=== PATIENT | male | born 1980 | race Caucasian/White ===

== ENCOUNTER 2017-02-14 08:05 | Emergency (ER) | payer BC ==
[2017-02-14 08:13] VITALS: BP 136/86
[2017-02-14] MEDS ORDERED: Lidocaine 1% MDV 20 ML INJ ONE (08:55)
[2017-02-14] MEDS ORDERED: Tetan/Diph/Pertus SYR(Tdap)* 0.5 ML SYR(BOOSTRIX) use SYR IM ONE (08:55)
[2017-02-14] MEDS ORDERED: Lidocaine 1% MPF* 2 ML VIAL INJ ONE (09:00)
--- NOTE | 2017-02-27 13:13 | UC ---
Henry Pizaror [place], scribed for Nichelle Lira MD on 02/14/17 at 0849 . Skin Complaint HPI - HPI Summary HPI Summary: Patient is a 36 y/o M who presents to the with a sore on his right lower buttocks for the past few weeks that is not improving or worsening. He states that the area is red and reports mild drainage. He also states that it first blistered then scabbed over a few times. He reports using A&D ointment with little alleviation, but he does not recall what type of ointment exactly. He denies a hx of staph infection. Pt states that his last Tetanus shot was in 2010. Patients medication reviewed this visit. - History of Current Complaint Chief Complaint: UCSkin Time Seen by Provider: 02/14/17 08:43 Stated Complaint: SORE ON BUTTOCKS Hx Obtained From: Patient Onset/Duration: Gradual Onset, Lasting Weeks, Still Present Skin Exposure Onset/Duration: Weeks Ago Timing: Constant Onset Severity: Moderate Current Severity: Moderate Pain Intensity: 2 Pain Scale Used: 0-10 Numeric Location: Discrete - Right lower buttocks. Character: Redness Aggravating: Nothing Alleviating: Nothing Associated Signs & Symptoms: Positive: Negative - Allergy/Home Medications Allergies/Adverse Reactions: Allergies Allergy/AdvReac Type Severity Reaction Status Date / Time bee stings Allergy Swelling Uncoded 02/14/17 08:08 Of Face,Lips,& Throat Review of Systems Constitutional: Negative Skin: Other - See HPI. All Other Systems Reviewed And Are Negative: Yes PMH/Surg Hx/FS Hx/Imm Hx Previously Healthy: Yes - Surgical History Surgical History: Yes Surgery Procedure, Year, and Place: Hernia surgery age 2 or 3 - Family History Known Family History: Negative: Cardiac Disease, Hypertension, Diabetes - Social History Alcohol Use: Weekly Alcohol Amount: 2-3 beers Substance Use Type: None Smoking Status (MU): Never Smoked Tobacco - Immunization History Most Recent Influenza Vaccination: never gets it Most Recent Tetanus Shot: up to date Physical Exam Triage Information Reviewed: Yes Appearance: Well-Nourished Vital Signs: Initial Vital Signs Temp 98.5 F 02/14/17 08:09 Pulse 76 02/14/17 08:09 Resp 16 02/14/17 08:09 BP 136/86 02/14/17 08:09 Pulse Ox 99 02/14/17 08:09 Vital Signs Reviewed: Yes Eye Exam: Normal ENT Exam: Normal Neck exam: Normal Neck: Positive: No Lymphadenopathy Respiratory Exam: Normal Respiratory: Positive: Chest non-tender, Lungs clear, Normal breath sounds, No respiratory distress, No accessory muscle use Cardiovascular Exam: Normal Cardiovascular: Positive: RRR, No Murmur, Pulses Normal, Brisk Capillary Refill Abdominal Exam: Normal Abdomen Description: Positive: Nontender, No Organomegaly, Soft Bowel Sounds: Positive: Present Musculoskeletal Exam: Normal Musculoskeletal: Positive: Strength Intact Neurological Exam: Normal - nonfocal, grossly intact Psychological Exam: Normal - conversing easily and appropriately Skin: Positive: Other - 1.8cm x 1.8cm neurotic circumferential yellow eschar with thick yellow purulent exposed. No redness. Positive tenderness. Course/Dx - Course Course Of Treatment: 1.8cm depth with undermining moderate yellow purulent. Effluent approximating that of affluent. Reviewed wound care and AVS instructions. Questions answered to the best of my ability. - Diagnoses Provider Diagnoses: R buttock abscess, with I/D. Procedures - Incision and Drainage Site: Right lower buttocks. Anesthesia: Local - Lido 1%. Normal cleaning methods. 6 cc. Instrument(s): Scalpel - 11 scalpel blade. Packing: Gauze - Gently packed with gauze. Discharge - Discharge Plan Condition: Stable Disposition: HOME Prescriptions: Sulfamethox/Trimethoprim DS* [Bactrim DS 800/160 TAB*] 1 tab PO BID #14 tab Patient Education Materials: Diphtheria/Acellular Pertussis/Tetanus Booster Vaccine (By injection), Abscess (ED) Forms: *Work Release Referrals: [facility] [Outside] Additional Instructions: Return here or follow up with your primary care physician in 2 days for dressing and packing change. Regardless, please follow up with a primary care provider in 1-2 weeks. Seek medical attention for worse or new problems in the meantime. Avoid astringents. Avoid soaking. Avoid pressure as discussed, as much as possible. Ok to shower immediately prior to returning here in 2 days. The documentation as recorded by the Henry lemons Salem accurately reflects the service I personally performed and the decisions made by me, Nichelle Lira MD.
== END 2017-02-14 10:02 | disposition home or self-care (01) ==
LOC: UCEAST 08:05
DX: L02.31 Cutaneous abscess of buttock (principal)
CPT/HCPCS: 10061; 87070; 87205; 90471; 90715; 99212; G0463

== ENCOUNTER 2017-02-16 14:56 | Emergency (ER) | payer BC ==
[2017-02-16 15:00] VITALS: BP 122/84
--- NOTE | 2017-02-16 15:12 | UC ---
General HPI - HPI Summary HPI Summary: The patient comes in today for: 1. Right buttocks abscess check: Onset: one month ago. Palliative/provocative: Tender to touch. Quality: No pain. Region: Right buttocks. Severity: 0/10 Time: gone. Associated symptoms: Event: Over the last month, he noted times it was more tender and less tender. Sometimes he would note that it would drain and other times it would scab over. It moved splitter tender to the surface a 1 to 1.5 week before he came in two days ago. Two days ago, he had it lanced and it was drained. Since then, he has had an improvement. It is not draining much at this time. It is less tender. He had it lanced and drained with packing put in by Dr. Lira. He was told to come back to have the packing changed. He was put on Bactrim. * - History of Current Complaint Chief Complaint: UCSkin Stated Complaint: WOUND RECHECK Time Seen by Provider: 02/16/17 15:04 Hx Obtained From: Patient - Allergy/Home Medications Allergies/Adverse Reactions: Allergies Allergy/AdvReac Type Severity Reaction Status Date / Time bee stings Allergy Swelling Uncoded 02/14/17 08:08 Of Face,Lips,& Throat PMH/Surg Hx/FS Hx/Imm Hx Previously Healthy: Yes - Surgical History Surgical History: Yes Surgery Procedure, Year, and Place: Hernia surgery age 2 or 3 - Family History Known Family History: Negative: Hypertension, Diabetes - Social History Occupation: Employed Full-time Alcohol Use: Weekly Alcohol Amount: 2-3 beers Substance Use Type: None Smoking Status (MU): Never Smoked Tobacco - Immunization History Most Recent Influenza Vaccination: never gets it Most Recent Tetanus Shot: up to date Review of Systems Constitutional: Negative Skin: Negative Eyes: Negative ENT: Negative Respiratory: Negative Cardiovascular: Negative Gastrointestinal: Negative Genitourinary: Negative Motor: Negative All Other Systems Reviewed And Are Negative: Yes Physical Exam Triage Information Reviewed: Yes Appearance: Well-Appearing, No Pain Distress, Well-Nourished Vital Signs: Initial Vital Signs Temp 98.1 F 02/16/17 14:58 Pulse 94 02/16/17 14:58 Resp 16 02/16/17 14:58 BP 122/84 02/16/17 14:58 Pulse Ox 100 02/16/17 14:58 Vital Signs Reviewed: Yes Eyes: Positive: Conjunctiva Clear. Negative: Discharge ENT: Positive: Hearing grossly normal. Negative: Pharyngeal erythema, Nasal congestion, Nasal drainage, TM bulging, TM dull, TM red, Tonsillar swelling, Tonsillar exudate Dental: Positive: Gross Decay/Caries @, Dental Fracture @ Neck: Positive: Supple, Nontender, No Lymphadenopathy. Negative: Nuchal Rigidity Respiratory: Positive: Lungs clear. Negative: No respiratory distress, No accessory muscle use, Respiratory distress, Crackles, Rhonchi Cardiovascular: Positive: RRR, No Murmur Abdomen Description: Positive: Nontender, No Organomegaly, Soft. Negative: Distended, Guarding Musculoskeletal: Positive: Strength Intact, ROM Intact Neurological: Positive: Alert, Muscle Tone Normal Psychological: Positive: Age Appropriate Behavior, Consolable Skin: Positive: Other - The patient has of the lower right buttocks a reddened area which is not draining and is not tender. Course/Dx - Differential Dx - Multi-Symptom Provider Diagnoses: Right buttocks abscess healed. Discharge - Discharge Plan Condition: Stable Disposition: HOME Patient Education Materials: Abscess (ED) Referrals: No Primary Care Phys,NOPCP [Primary Care Provider] - If Needed (Please follow up with [facility]--your PCP as he or she has previously directed. If you have any more problems with the area, please be seen again for that.)
== END 2017-02-16 15:42 | disposition home or self-care (01) ==
LOC: UCEAST 14:56
DX: L02.31 Cutaneous abscess of buttock (principal); Z91.030 Bee allergy status
CPT/HCPCS: 99211; G0463

== ENCOUNTER 2017-05-25 08:41 | Emergency (ER) | payer BC ==
[2017-05-25 08:47] VITALS: BP 129/85
--- NOTE | 2017-05-25 10:54 | UC ---
Skin Complaint HPI - HPI Summary HPI Summary: NOTICED A SORE SPOT ON HIS RIGHT BUTTOCK ABOUT A WEEK AGO. 3 DAYS AGO IT STARTED DRAINING BLOODY PUS. PT DENIES FEVER, CHILLS. HAD A SIMILAR LESION ON A DIFFERENT AREA OF HIS RIGHT BUTTOCK IN JANUARY 2017. DENIES ANY CHRONIC MEDICAL PROBLEMS/IMMUNOCOMPROMISING CONDITIONS THAT HE IS AWARE OF. - History of Current Complaint Chief Complaint: UCGU Time Seen by Provider: 05/25/17 10:13 Stated Complaint: PERSONAL Hx Obtained From: Patient Onset/Duration: Gradual Onset, Lasting Days, Still Present Timing: Constant Onset Severity: Moderate Current Severity: Moderate Pain Intensity: 2 Pain Scale Used: 0-10 Numeric Character: Redness, Painful Aggravating Factor(s): Touch Alleviating Factor(s): Nothing Associated Signs & Symptoms: Positive: Drainage, Tenderness - Allergy/Home Medications Allergies/Adverse Reactions: Allergies Allergy/AdvReac Type Severity Reaction Status Date / Time bee stings Allergy Swelling Uncoded 05/25/17 08:48 Of Face,Lips,& Throat Review of Systems Constitutional: Negative Skin: Other - DRAINING ABSCESS Respiratory: Negative Cardiovascular: Negative Gastrointestinal: Negative All Other Systems Reviewed And Are Negative: Yes PMH/Surg Hx/FS Hx/Imm Hx Previously Healthy: Yes - Surgical History Surgical History: Yes Surgery Procedure, Year, and Place: Hernia surgery age 2 or 3 - Family History Known Family History: Positive: None Negative: Cardiac Disease, Hypertension, Diabetes - Social History Alcohol Use: Occasionally Alcohol Amount: 2-3 beers Substance Use Type: None Smoking Status (MU): Never Smoked Tobacco - Immunization History Most Recent Influenza Vaccination: never gets it Most Recent Tetanus Shot: up to date Physical Exam Triage Information Reviewed: Yes Appearance: Well-Appearing, No Pain Distress, Well-Nourished Vital Signs: Initial Vital Signs Temp 98.2 F 05/25/17 08:44 Pulse 72 05/25/17 08:44 Resp 16 05/25/17 08:44 BP 129/85 05/25/17 08:44 Pulse Ox 100 05/25/17 08:44 Vital Signs Reviewed: Yes Eyes: Positive: Conjunctiva Clear Neck: Positive: Supple Respiratory: Positive: No respiratory distress, No accessory muscle use Cardiovascular: Positive: Pulses Normal Abdomen Description: Positive: Soft Musculoskeletal: Positive: No Edema Neurological: Positive: Alert Psychological: Positive: Age Appropriate Behavior Skin: Positive: Other - 4CM AREA OF INDURATION RIGHT BUTTOCK JUST INSIDE GLUTEAL CLEFT WITH CENTRAL OPENING DRAINING BLOODY PUS. Course/Dx - Course Course Of Treatment: ABSCESS ALREADY OPEN AND DRAINING. BLOODY PUS EXPRESSED AND CULTURE TAKEN. BACTRIM. F/U IF NEEDED. - Diagnoses Provider Diagnoses: ABSCESS RIGHT BUTTOCK Discharge - Discharge Plan Condition: Stable Disposition: HOME Prescriptions: Sulfamethox/Trimethoprim DS* [Bactrim DS 800/160 TAB*] 1 tab PO BID #14 tab Patient Education Materials: Abscess (ED) Forms: *Work Release Referrals: Reza Joyner DO [Doctor of Osteopathy] - If Needed Additional Instructions: WARM/HOT COMPRESSES/SOAKS AT LEAST 4 TIMES DAILY SPECIMEN SENT FOR CULTURE. TAKE ANTIBIOTICS FOR THE FULL COURSE. SEEK FOLLOW-UP IF YOU DEVELOP SPREADING REDNESS OF THE SKIN, PERSISTENT PURULENT DRAINAGE, FEVER, INCREASED PAIN OR ANY OTHER CONCERNING SYMPTOMS. KEEP YOUR PCP FOLLOW-UP IN JUNE. IF YOU CONTINUE TO DEVELOP ABSCESSES YOU SHOULD BE EVALUATED FOR UNDERLYING IMMUNOCOMPROMISING CONDITION.
--- NOTE | 2017-05-30 16:10 | UC ---
Progress - Progress Note Progress Note: notify pt stop bactrim ds i eRxed keflex 500mg 4x day (#28)
== END 2017-05-25 10:55 | disposition home or self-care (01) ==
LOC: UCEAST 08:41
DX: L02.31 Cutaneous abscess of buttock (principal)
CPT/HCPCS: 87070; 87076; 87077; 87186; 87205; 87640; 87641; 99212; G0463

== ENCOUNTER 2017-08-03 17:23 | Emergency (ER) | payer BC ==
--- NOTE | 2017-08-03 19:15 | UC ---
Throat Pain/Nasal [place] HPI - HPI Summary HPI Summary: 36 yo male with sore throat x 2-3 days no f/c some SALINAS and myalgias - History of Current Complaint Chief Complaint: UCRespiratory Stated Complaint: SORE THROAT Time Seen by Provider: 08/03/17 19:02 Hx Obtained From: Patient Onset/Duration: Gradual Onset, Lasting Days Severity: Moderate Pain Intensity: 4 Pain Scale Used: 0-10 Numeric Cough: Nonproductive - Allergies/Home Medications Allergies/Adverse Reactions: Allergies Allergy/AdvReac Type Severity Reaction Status Date / Time bee stings Allergy Swelling Uncoded 08/03/17 17:44 Of Face,Lips,& Throat PMH/Surg Hx/FS Hx/Imm Hx Previously Healthy: Yes - Surgical History Surgical History: Yes Surgery Procedure, Year, and Place: Hernia surgery age 2 or 3 - Family History Known Family History: Negative: Cardiac Disease, Hypertension, Diabetes - Social History Alcohol Use: Occasionally Alcohol Amount: 2-3 beers Substance Use Type: None Smoking Status (MU): Never Smoked Tobacco - Immunization History Most Recent Influenza Vaccination: never gets it Most Recent Tetanus Shot: up to date Review of Systems Constitutional: Negative Skin: Negative Eyes: Negative ENT: Sore Throat Respiratory: Negative Cardiovascular: Negative Gastrointestinal: Negative Genitourinary: Negative Motor: Negative Neurovascular: Negative Musculoskeletal: Negative Neurological: Negative Psychological: Negative Is Patient Immunocompromised?: No All Other Systems Reviewed And Are Negative: Yes Physical Exam Triage Information Reviewed: Yes Appearance: Well-Appearing, No Pain Distress, Well-Nourished Vital Signs: Initial Vital Signs Temp 97.6 F 08/03/17 17:42 Pulse 72 08/03/17 17:42 Resp 18 08/03/17 17:42 BP 129/78 08/03/17 17:42 Pulse Ox 98 08/03/17 17:42 Eyes: Positive: Conjunctiva Clear ENT: Positive: Hearing grossly normal, Pharyngeal erythema, Tonsillar swelling, Uvula midline. Negative: Trismus, Muffled voice, Hoarse voice Neck: Positive: Supple, Nontender, No Lymphadenopathy Respiratory: Positive: Lungs clear, Normal breath sounds, No respiratory distress Cardiovascular: Positive: RRR, No Murmur Musculoskeletal: Positive: ROM Intact, No Edema Neurological: Positive: Alert Psychological Exam: Normal Skin Exam: Normal Diagnostics - Laboratory Diagnostic Studies Completed/Ordered: strep(+) Throat Pain/Nasal Course/Dx - Differential Dx/Diagnosis Provider Diagnoses: strep throat Discharge - Discharge Plan Condition: Stable Disposition: HOME Prescriptions: Amoxicillin PO (*) [Amoxicillin 875 MG (*)] 875 mg PO BID #20 tab Patient Education Materials: Strep Throat (ED) Referrals: Reza Joyner DO [Primary Care Provider] - 3 Days (if not better) Additional Instructions: rest fluids tylenol or advil if not better
[2017-08-03 19:58] VITALS: BP 126/94
--- OUTSIDE RECORDS SUMMARY | 2017-08-06 09:43 | XMS REPORT ---
:1980 External Reference #:[id number] Author Organization [facility] Address [address] [place] [address] Phone [phone] Care Team Providers Name Role Phone HCP given Primary Care Physician Unavailable Payers Type Date Identification Numbers Payment Provider Subscriber Commercial Effective: Policy Number: Darren Loredo 2015 [id number] Ind/Ppo/Hmo/Pos PayID: [id number] [address] [address] [place] [address] Problems Description No Information Family History Date Family Member(s) Problem(s) Comments Father Diabetes, Nos Children 2 Paternal Grandmother Lymphoma Maternal Grandmother Uterine Cancer Social History Type Date Description Comments Education Highest Level Completed College Marital Status Single Occupation human resources operations manager at [employer] Cigarette Use Never Smoked Cigarettes ETOH Use Occassional Alcohol Recreational Drug Use Denies Drug Use Exercise Type/Frequency Exercises regularly Sun Exposure Uses sunscreen Seat Belt/Car Seat Seat Belt Use - Yes Currently Active Patient is currently sexually active Contraceptive Methods Tubal Ligation Age 1st [place] 20 Years Old Additional Info Sexual Partners 1-5 Allergies, Adverse Reactions, Alerts Date Description Reaction Status Severity Comments 05/09/2016 NKDA active Medications Medication Date Status Form Strength Qnty SIG Indications Ordering Provider No Active 05/09/2016 Active [place], Medications Brennan Cobb Vital Signs Date Vital Result Comment 07/10/2017 BP Systolic 122 mmHg BP Diastolic 82 mmHg Height 70.5 inches 5'10.50" with shoes Weight 215.00 lb with shoes BMI (Body Mass Index) 30.4 kg/m2 05/09/2016 BP Systolic 132 mmHg BP Diastolic 98 mmHg Height 69.75 inches 5'9.75" Weight 203.00 lb BMI (Body Mass Index) 29.3 kg/m2 Results Description No Information Procedures Description No Information Encounters Type Date Location Provider CPT E/M Dx Office Visit 05/09/2016 3:30p Main Office Reza Joyner D.O. [id number] Z00.00 Plan of Care 07/10/2017 - Reza Joyner D.O.[id number] Unspecified hearing loss, bilateralNew Orders:Audiometry [id number] Encntr for general adult medical exam w/o abnormal findingsFollow up:1 year WILLIAM
== END 2017-08-03 19:45 | disposition home or self-care (01) ==
LOC: UCEAST 17:23
DX: J02.0 Streptococcal pharyngitis (principal)
CPT/HCPCS: 87651; 99212; G0463

== ENCOUNTER 2018-12-20 08:34 | Emergency (ER) | payer BC ==
[2018-12-20 08:48] VITALS: BP 123/75
--- NOTE | 2018-12-20 09:39 | UC ---
Throat Pain/Nasal [place] HPI - HPI Summary HPI Summary: 2 DAYS OF SORE THROAT, PAIN WITH SWALLOWING, COUGH AND CONGESTION. STATES THROAT FEELS A LITTLE BETTER TODAY BUT HE DID HAVE STREP A YEAR AND A HALF AGO AND IS CONCERNED ABOUT THIS. NO FEVER, NAUSEA/VOMITING. - History of Current Complaint Chief Complaint: UCRespiratory Stated Complaint: COUGH/SORE THROAT Time Seen by Provider: 12/20/18 09:29 Hx Obtained From: Patient Onset/Duration: Gradual Onset, Lasting Days, Still Present Severity: Moderate Pain Intensity: 0 Pain Scale Used: 0-10 Numeric Cough: Nonproductive Associated Signs & Symptoms: Positive: Nasal Discharge. Negative: Hoarseness, Fever - Allergies/Home Medications Allergies/Adverse Reactions: Allergies Allergy/AdvReac Type Severity Reaction Status Date / Time bee stings Allergy Swelling Uncoded 12/20/18 08:48 Of Face,Lips,& Throat Home Medications: Home Medications Ibuprofen TAB* [Advil TAB*] 400 mg PO Q6H PRN 12/20/18 [History Confirmed ] PMH/Surg Hx/FS Hx/Imm Hx Previously Healthy: Yes - Surgical History Surgical History: Yes Surgery Procedure, Year, and Place: Hernia surgery age 2 or 3 - Family History Known Family History: Negative: Cardiac Disease, Hypertension, Diabetes - Social History Alcohol Use: Occasionally Alcohol Amount: 2-3 beers Substance Use Type: None Smoking Status (MU): Never Smoked Tobacco - Immunization History Most Recent Influenza Vaccination: never gets it Most Recent Tetanus Shot: up to date Review of Systems All Other Systems Reviewed And Are Negative: Yes Constitutional: Positive: Negative ENT: Positive: Sore Throat, Nasal Discharge Respiratory: Positive: Cough Cardiovascular: Positive: Negative Gastrointestinal: Positive: Negative Physical Exam Triage Information Reviewed: Yes Appearance: Well-Appearing, No Pain Distress, Well-Nourished Vital Signs: Initial Vital Signs Temp 97.4 F 12/20/18 08:43 Pulse 93 12/20/18 08:43 Resp 16 12/20/18 08:43 BP 123/75 12/20/18 08:43 Pulse Ox 95 12/20/18 08:43 Laboratory Tests 12/20/18 09:40 Group A Strep Rapid Negative Vital Signs Reviewed: Yes Eyes: Positive: Conjunctiva Clear ENT: Positive: Hearing grossly normal, Pharyngeal erythema, TMs normal. Negative: Tonsillar swelling, Tonsillar exudate Neck: Positive: Supple, Nontender, No Lymphadenopathy Respiratory Exam: Normal Cardiovascular Exam: Normal Abdomen Description: Positive: Soft Musculoskeletal: Positive: No Edema Neurological: Positive: Alert Psychological: Positive: Age Appropriate Behavior Skin: Negative: Rashes Throat Pain/Nasal Course/Dx - Differential Dx/Diagnosis Provider Diagnosis: Acute pharyngitis Discharge - Sign-Out/Discharge Documenting (check all that apply): Patient Departure All imaging exams completed and their final reports reviewed: No Studies - Discharge Plan Condition: Stable Disposition: HOME Patient Education Materials: Pharyngitis (ED) Referrals: Reza Joyner DO [Primary Care Provider] - If Needed Additional Instructions: STREP TEST NEGATIVE. YOUR SYMPTOMS ARE LIKELY VIRALLY MEDIATED AND SHOULD RESOLVE ON THEIR OWN WITH TIME. NO INDICATION FOR ANTIBIOTICS AT PRESENT. REST, HYDRATE, OTC MEDS NEEDED. SEEK FOLLOW-UP IF YOU ARE NOT IMPROVING OVER THE NEXT 1-2 WEEKS. - Billing Disposition and Condition Condition: STABLE Disposition: Home
== END 2018-12-20 10:30 | disposition home or self-care (01) ==
LOC: UCEAST 08:34
DX: J02.9 Acute pharyngitis, unspecified (principal); J34.89 Other specified disorders of nose and nasal sinuses; R05 Cough; Z91.030 Bee allergy status
CPT/HCPCS: 87651; 99211; G0463